=== PATIENT | female | born 1985 | race Caucasian/White ===

== ENCOUNTER 2017-03-05 14:26 | Emergency (ER) | payer OTHER ==
[2017-03-05 16:07] LABS: RED BLOOD COUNT 5.17 M/UL (4.00-5.10); WHITE BLOOD COUNT 10.9 K/UL (4.5-11.0)
[2017-03-05 16:23] LABS: BUN/CREATININE RATIO 22 (0-10)
== END 2017-03-05 20:30 | disposition home or self-care (01) ==
LOC: ER1 14:26
PROVIDERS: Physician Assistant
DX: O20.0 Threatened abortion (principal); O99.331 Smoking (tobacco) complicating pregnancy, first trimester; F17.200 Nicotine dependence, unspecified, uncomplicated; Z3A.01 Less than 8 weeks gestation of pregnancy
CPT/HCPCS: 36415; 76817; 80053; 81001; 84702; 85025; 86900; 86901; 96360; 99283; J7030

== ENCOUNTER 2020-12-31 13:45 | Emergency (ER) | payer OTHER ==
[~2020-12-31 13:45] MED LIST: IBUPROFEN600 MG PO; VIBRAMYCIN100 MG PO
[2020-12-31 15:44] LABS: HEMOGLOBIN 13.8 gm/dl (12.3-15.3); RED BLOOD COUNT 4.42 M/UL (4.00-5.10); WHITE BLOOD COUNT 12.5 K/UL (4.5-11.0)
[2020-12-31 16:05] LABS: BUN/CREATININE RATIO 13 (0-10)
== END 2020-12-31 16:21 | disposition home or self-care (01) ==
LOC: ER1 13:45
PROVIDERS: Physician Assistant Medical
DX: O9A.211 Injury, poisoning and certain other consequences of external causes complicating pregnancy, first trimester (principal); S61.419A Laceration without foreign body of unspecified hand, initial encounter; O99.331 Smoking (tobacco) complicating pregnancy, first trimester; F17.210 Nicotine dependence, cigarettes, uncomplicated; W01.10XA Fall on same level from slipping, tripping and stumbling with subsequent striking against unspecified object, initial encounter; Z3A.08 8 weeks gestation of pregnancy; Z53.20 Procedure and treatment not carried out because of patient's decision for unspecified reasons
CPT/HCPCS: 80053; 81001; 84702; 85025; 85610; 99283

== ENCOUNTER 2021-04-10 18:12 | Outpatient (CLI) | payer OTHER | END 2021-04-10 21:05 | disposition home or self-care (01) | LOC: GENOP 18:12 | PROVIDERS: Obstetrics & Gynecology | DX: O36.8320 Maternal care for abnormalities of the fetal heart rate or rhythm, second trimester, not applicable or unspecified (principal); O99.322 Drug use complicating pregnancy, second trimester; F11.10 Opioid abuse, uncomplicated; F15.10 Other stimulant abuse, uncomplicated; F12.10 Cannabis abuse, uncomplicated; O09.32 Supervision of pregnancy with insufficient antenatal care, second trimester; O36.5920 Maternal care for other known or suspected poor fetal growth, second trimester, not applicable or unspecified; O99.332 Smoking (tobacco) complicating pregnancy, second trimester; F17.210 Nicotine dependence, cigarettes, uncomplicated; O99.342 Other mental disorders complicating pregnancy, second trimester; F32.9 Major depressive disorder, single episode, unspecified; O99.352 Diseases of the nervous system complicating pregnancy, second trimester; G43.909 Migraine, unspecified, not intractable, without status migrainosus; Z3A.24 24 weeks gestation of pregnancy | CPT/HCPCS: 80307; 81001; G0463 ==

== ENCOUNTER 2021-07-06 08:30 | Inpatient (IN) | payer OTHER ==
[~2021-07-06] VITALS: Ht 152.4 cm; Wt 51.7 kg
[2021-07-06 09:05] LABS: HEMOGLOBIN 12.8 gm/dl (12.3-15.3); RED BLOOD COUNT 4.29 M/UL (4.00-5.10); WHITE BLOOD COUNT 18.4 K/UL (4.5-11.0)
[2021-07-06] MEDS ORDERED: IBUPROFEN600 MG PO (12:18)
[2021-07-06] MEDS ORDERED: DOCUSATE SODIU100 MG PO (12:18)
[2021-07-07 07:42] LABS: HEMOGLOBIN 9.6 gm/dl (12.3-15.3)
== END 2021-07-07 13:52 | disposition home or self-care (01) | DRG 806 ==
LOC: GENOP 08:30 → OB 08:50
PROVIDERS: ADMIT Obstetrics & Gynecology
PROC: 10E0XZZ Delivery of Products of Conception, External Approach (ICD-10-PCS; principal; 2021-07-06)
PROC: 0UQGXZZ Repair Vagina, External Approach (ICD-10-PCS; 2021-07-06)
PROC: 4A1HXCZ Monitoring of Products of Conception, Cardiac Rate, External Approach (ICD-10-PCS; 2021-07-06)
DX: O42.913 Preterm premature rupture of membranes, unspecified as to length of time between rupture and onset of labor, third trimester (principal); O98.32 Other infections with a predominantly sexual mode of transmission complicating childbirth; Z37.0 Single live birth; O72.1 Other immediate postpartum hemorrhage; O99.324 Drug use complicating childbirth; O71.4 Obstetric high vaginal laceration alone; Z20.822 Contact with and (suspected) exposure to COVID-19; Z3A.36 36 weeks gestation of pregnancy; O36.5930 Maternal care for other known or suspected poor fetal growth, third trimester, not applicable or unspecified; A60.00 Herpesviral infection of urogenital system, unspecified; F11.10 Opioid abuse, uncomplicated
CPT/HCPCS: 36415; 80307; 81001; 85014; 85018; 85025; 90471; 90715; J2210; J2270; J2590; J7120; U0002

== ENCOUNTER 2021-07-19 16:55 | Observation (INO) | payer OTHER ==
[~2021-07-19 16:55] MED LIST changes: +DOCUSATE SODIU100 MG PO
[2021-07-19 18:38] LABS: HEMOGLOBIN 10.3 gm/dl (12.3-15.3); RED BLOOD COUNT 3.53 M/UL (4.00-5.10); WHITE BLOOD COUNT 14.1 K/UL (4.5-11.0)
[2021-07-19 18:58] LABS: BUN/CREATININE RATIO 22 (0-10)
[2021-07-21] MEDS ORDERED: LABETALOL HCL200 MG PO (09:06)
[2021-07-21] MEDS ORDERED: PROCARDIA XL30 MG PO (09:06)
== END 2021-07-21 09:48 | disposition home or self-care (01) ==
LOC: CDU 17:16 → OB 17:16 → CDU 17:16 → OB 19:39
PROVIDERS: Obstetrics & Gynecology; ADMIT Obstetrics & Gynecology
DX: O99.350 Diseases of the nervous system complicating pregnancy, unspecified trimester (principal); G43.909 Migraine, unspecified, not intractable, without status migrainosus; O16.9 Unspecified maternal hypertension, unspecified trimester; O99.320 Drug use complicating pregnancy, unspecified trimester; F11.90 Opioid use, unspecified, uncomplicated; F15.90 Other stimulant use, unspecified, uncomplicated
CPT/HCPCS: 36415; 80053; 80307; 81001; 82570; 83615; 83735; 84156; 84550; 85025; 96365; 96366; 96374; G0378; G0379; J1200; J2765; J3475; U0002